=== PATIENT | male | born 1985 | race Caucasian/White ===

== ENCOUNTER 2022-01-06 14:46 | Inpatient (IN) ==
[2022-01-06 16:10] LABS: Amphetamine Screen,Urine Negative ng/mL (Cutoff=1000); Barbiturate Screen,Urine Negative ng/mL (Cutoff=200); Benzodiazepines Screen,Urine Negative ng/mL (Cutoff=200); Cannabinoid Screen,Urine Positive ng/mL (Cutoff = 50); Cocaine Screen,Urine Negative ng/mL (Cutoff= 300); Opiate Screen,Urine Negative ng/mL (Cutoff=300); Phencyclidine Screen,Urine Negative ng/mL (Cutoff=25)
[2022-01-06 16:18] LABS: Basophils % 0.2 %; Hematocrit 45.4 % (37.5-50.1); Hemoglobin 15.5 g/dL (12.9-16.9); Immature Granulocytes % 0.3 % (0-4); Lymphocytes # 0.8 K/mcL (0.6-4.6); Lymphocytes % 12.7 %; Mean Corpuscular HGB Conc 34.1 g/dL (31.6-35.5); Mean Corpuscular Hemoglobin 30.1 pg (28.0-33.3); Mean Corpuscular Volume 88.2 fL (83.0-100.0); Mean Platelet Volume 9.1 fL (9.4-12.4); Monocytes # 0.9 K/mcL (0.0-1.3); Monocytes % 14.8 %; Neutrophils # 4.5 K/mcL (1.6-8.9); Platelet Count 152 K/mcL (140-400); Red Blood Count 5.15 M/mcL (4.19-5.50); Red Cell Distribution Width 12.1 % (11.5-14.5); White Blood Count 6.2 K/mcL (4.3-11.1)
[2022-01-06] MEDS ORDERED: Isovue-370 500 ML BOTTLE IVP ONE (17:00)
[2022-01-06 17:59] LABS: Influenza A PCR Negative (Negative); Influenza B PCR Negative (Negative); Resp. Syncytial Virus PCR Negative (Negative)
[2022-01-06 18:02] LABS: SARS-CoV-2 by PCR (In House) Positive (Negative)
[2022-01-06 18:05] LABS: BUN/Creatinine Ratio 25 (6-26); Blood Urea Nitrogen 23 mg/dL (6-20); Calcium 9.1 mg/dL (8.6-10.3); Carbon Dioxide 26 mEq/L (23-29); Chloride 100 mEq/L (98-107); Ethanol < 10 mg/dL (Less than 10); Glucose 109 mg/dL (70-105); Osmolality,Calculated 288 (280-300); Potassium 3.1 mEq/L (3.5-5.1); Sodium 137 mEq/L (136-145); eGFR For African Americans > 60 (> 60); eGFR For Non-African Americans > 60 (> 60)
[2022-01-06] MEDS ORDERED: Ibuprofen 600 MG TABLET PO ONE (19:28)
[2022-01-06 19:49] LABS: Thyroid Stimulating Hormone 0.278 mcIU/mL (0.340-5.600)
[2022-01-06] MEDS ORDERED: Potassium Effervescent 25 MEQ TABLET.EFF PO ONE (20:06)
[2022-01-06] MEDS ORDERED: Ondansetron 4 MG/2 ML VIAL IVP PRN (20:59)
[2022-01-06] MEDS ORDERED: Naloxone 0.4 MG/ML INJ IVP PRN (20:59)
[2022-01-06] MEDS: *HR* Heparin 5,000 UNIT/ML VIAL SQ SCH (21:38)
[2022-01-06] MEDS: Nicotine 21 MG PATCH.TD24 TD SCH (21:57)
[2022-01-06] MEDS: *HR* Buprenorphine HCl 8 MG TAB.SUBL SL SCH (21:57)
[2022-01-06 22:17] LABS: Magnesium 2.2 mg/dL (1.6-2.6)
[2022-01-06] MEDS: lamoTRIgine 100 MG TABLET PO SCH (22:58)
[2022-01-07] MEDS: *HR* Heparin 5,000 UNIT/ML VIAL SQ SCH ×3 (05:07→21:40)
[2022-01-07 05:58] LABS: Basophils % 0.4 %; Hematocrit 44.1 % (37.5-50.1); Hemoglobin 15.3 g/dL (12.9-16.9); Immature Granulocytes % 0.4 % (0-4); Lymphocytes # 1.1 K/mcL (0.6-4.6); Mean Corpuscular HGB Conc 34.7 g/dL (31.6-35.5); Mean Corpuscular Hemoglobin 30.4 pg (28.0-33.3); Mean Corpuscular Volume 87.5 fL (83.0-100.0); Mean Platelet Volume 8.8 fL (9.4-12.4); Monocytes # 0.8 K/mcL (0.0-1.3); Monocytes % 17.1 %; Neutrophils # 2.9 K/mcL (1.6-8.9); Platelet Count 128 K/mcL (140-400); Red Blood Count 5.04 M/mcL (4.19-5.50); Red Cell Distribution Width 12.1 % (11.5-14.5); Segmented Neutrophils % 59.1 %; White Blood Count 4.9 K/mcL (4.3-11.1)
[2022-01-07 06:04] LABS: INR 1.1; Prothrombin Time 12.4 Seconds (9.4-12.1)
[2022-01-07 06:47] LABS: Alanine Aminotransferase 30 Units/L (7-52); Albumin 4.6 g/dL (3.5-5.7); Albumin/Globulin Ratio 1.9 (1.1-2.2); Alkaline Phosphatase 68 Units/L (34-104); Aspartate Amino Transferase 56 Units/L (13-39); BUN/Creatinine Ratio 22 (6-26); Bilirubin,Total 0.7 mg/dL (0.3-1.0); Blood Urea Nitrogen 18 mg/dL (6-20); Calcium 8.8 mg/dL (8.6-10.3); Carbon Dioxide 26 mEq/L (23-29); Chloride 102 mEq/L (98-107); Globulin 2.4 g/dL (2.4-3.5); Glucose 106 mg/dL (70-105); Magnesium 2.2 mg/dL (1.6-2.6); Osmolality,Calculated 288 (280-300); Phosphorous 3.5 mg/dL (2.7-4.5); Potassium 3.1 mEq/L (3.5-5.1); Sodium 138 mEq/L (136-145); Troponin I < 0.03 ng/mL (< 0.04); eGFR For African Americans > 60 (> 60); eGFR For Non-African Americans > 60 (> 60)
[2022-01-07] MEDS ORDERED: Potassium Chloride Elixir 20 MEQ/15 ML UDC PO ONE (07:27)
[2022-01-07] MEDS: Nicotine 21 MG PATCH.TD24 TD SCH (09:28)
[2022-01-07] MEDS: *HR* Buprenorphine HCl 8 MG TAB.SUBL SL SCH (09:28)
[2022-01-07] MEDS ORDERED: cloNIDine HCL 0.1 MG TABLET PO PRN (12:36)
[2022-01-07 14:58] LABS: Amorphous Sediment,Urine Moderate per hpf (None-Few); Bilirubin,Urine Negative (Negative); Blood,Urine Negative (Negative); Clarity,Urine Ex.Turbid (Clear); Color,Urine Dark-Orange (Yellow); Glucose,Urine (UA) Normal (Normal); Ketones,Urine Trace mg/dL (Negative); Leukocyte Esterase,Urine Negative (Negative); Nitrite,Urine Negative (Negative); Protein,Urine 50 mg/dL (Neg-Trace); Specific Gravity,Urine > 1.030 (1.010-1.025)
[2022-01-07] MEDS: Melatonin 3 MG TABLET PO PRN (21:33)
[2022-01-07] MEDS: lamoTRIgine 100 MG TABLET PO SCH (21:33)
[2022-01-08] MEDS: *HR* Heparin 5,000 UNIT/ML VIAL SQ SCH ×3 (05:29→23:25)
[2022-01-08] MEDS: *HR* Buprenorphine HCl 8 MG TAB.SUBL SL SCH (08:56)
[2022-01-08] MEDS: Nicotine 21 MG PATCH.TD24 TD SCH (08:56)
[2022-01-08 11:58] LABS: Basophils % 0.4 %; Immature Granulocytes % 0.4 % (0-4); Mean Platelet Volume 9.3 fL (9.4-12.4); Red Cell Distribution Width 11.9 % (11.5-14.5)
[2022-01-08 12:00] LABS: Hematocrit 44.3 % (37.5-50.1); Hemoglobin 15.5 g/dL (12.9-16.9); Lymphocytes # 1.4 K/mcL (0.6-4.6); Lymphocytes % 29.9 %; Mean Corpuscular Hemoglobin 30.8 pg (28.0-33.3); Mean Corpuscular Volume 87.9 fL (83.0-100.0); Monocytes # 0.9 K/mcL (0.0-1.3); Monocytes % 18.8 %; Neutrophils # 2.4 K/mcL (1.6-8.9); Platelet Count 130 K/mcL (140-400); Red Blood Count 5.04 M/mcL (4.19-5.50); Segmented Neutrophils % 50.5 %; White Blood Count 4.8 K/mcL (4.3-11.1)
[2022-01-08 12:17] LABS: BUN/Creatinine Ratio 17 (6-26); Blood Urea Nitrogen 15 mg/dL (6-20); Calcium 8.8 mg/dL (8.6-10.3); Carbon Dioxide 30 mEq/L (23-29); Chloride 96 mEq/L (98-107); Glucose 101 mg/dL (70-105); Osmolality,Calculated 279 (280-300); Potassium 3.3 mEq/L (3.5-5.1); Sodium 134 mEq/L (136-145); eGFR For African Americans > 60 (> 60); eGFR For Non-African Americans > 60 (> 60)
[2022-01-08 12:31] LABS: Platelet Estimate Normal (Normal)
[2022-01-08] MEDS: OLANZapine 10 MG TAB.RAPDIS PO SCH (16:21)
[2022-01-08] MEDS: lamoTRIgine 100 MG TABLET PO SCH (20:06)
[2022-01-08] MEDS ORDERED: *HR* LORazepam 2 MG/ML VIAL IM ONE (20:15)
[2022-01-08] MEDS ORDERED: *HR* LORazepam 2 MG/ML VIAL IVP ONE ×2 (22:19→22:31)
[2022-01-08] MEDS ORDERED: Haloperidol Lactate 5 MG/ML VIAL IVP PRN (22:50)
[2022-01-08] MEDS ORDERED: Ziprasidone 10 MG, Closed System Device IM Kit 1 EACH in Water for inj. (sterile) 0.5 ML IM ONE (22:52)
[2022-01-08] MEDS ORDERED: Water for inj. (sterile) 10 ML ONE (23:02)
[2022-01-09] MEDS: Dexmedetomidine HCl 400 MCG/100 ML MLS IVC SCH ×3 (00:15→06:01)
[2022-01-09 02:48] LABS: Basophils % 0.1 %; Eosinophils % 0.1 %; Hemoglobin 14.8 g/dL (12.9-16.9); Immature Granulocytes % 0.4 % (0-4); Immature Platelets 2.5 % (1.1-6.1); Lymphocytes # 0.6 K/mcL (0.6-4.6); Lymphocytes % 7.6 %; Mean Corpuscular HGB Conc 35.2 g/dL (31.6-35.5); Mean Corpuscular Hemoglobin 30.6 pg (28.0-33.3); Monocytes # 0.7 K/mcL (0.0-1.3); Monocytes % 8.1 %; Platelet Count 108 K/mcL (140-400); Red Blood Count 4.83 M/mcL (4.19-5.50); Red Cell Distribution Width 11.8 % (11.5-14.5); Segmented Neutrophils % 83.7 %; White Blood Count 8.4 K/mcL (4.3-11.1)
[2022-01-09 03:08] LABS: Alanine Aminotransferase 57 Units/L (7-52); Albumin 4.3 g/dL (3.5-5.7); Albumin/Globulin Ratio 1.7 (1.1-2.2); Alkaline Phosphatase 60 Units/L (34-104); Aspartate Amino Transferase 146 Units/L (13-39); BUN/Creatinine Ratio 17 (6-26); Bilirubin,Direct 0.3 mg/dL (0.0-0.2); Bilirubin,Indirect 0.7 mg/dL (0.0-1.0); Blood Urea Nitrogen 14 mg/dL (6-20); Calcium 8.8 mg/dL (8.6-10.3); Carbon Dioxide 24 mEq/L (23-29); Chloride 94 mEq/L (98-107); Globulin 2.6 g/dL (2.4-3.5); Glucose 95 mg/dL (70-105); Lactate Dehydrogenase 582 Units/L (140-271); Magnesium 2.7 mg/dL (1.6-2.6); Osmolality,Calculated 280 (280-300); Potassium 3.3 mEq/L (3.5-5.1); Sodium 135 mEq/L (136-145); Total Protein 6.9 g/dL (6.4-8.9); eGFR For African Americans > 60 (> 60); eGFR For Non-African Americans > 60 (> 60)
[2022-01-09 03:53] LABS: Ferritin 261 ng/mL (20-250)
[2022-01-09 04:04] LABS: ABG Base Excess 0 mEq/L (-2 to 3); ABG HCO3 25 mEq/L (21-27); ABG Oxygen Saturation 96 % (95-98); ABG PCO2 40 mmHg (35-45); ABG PO2 82 mmHg (85-104); ABG TCO2 26 mEq/L (20-26)
[2022-01-09] MEDS: *HR* Heparin 5,000 UNIT/ML VIAL SQ SCH ×4 (05:22→22:29)
[2022-01-09] MEDS: Nicotine 21 MG PATCH.TD24 TD SCH (08:26)
[2022-01-09] MEDS: *HR* Buprenorphine HCl 8 MG TAB.SUBL SL SCH ×2 (08:27→09:06)
[2022-01-09] MEDS: OLANZapine 10 MG TAB.RAPDIS PO SCH ×3 (08:27→21:06)
[2022-01-09] MEDS ORDERED: Gabapentin 300 MG CAPSULE PO ONE (17:15)
[2022-01-09] MEDS: lamoTRIgine 100 MG TABLET PO SCH (21:06)
[2022-01-09] MEDS: Melatonin 3 MG TABLET PO PRN (21:20)
[2022-01-10] MEDS: *HR* Heparin 5,000 UNIT/ML VIAL SQ SCH ×3 (06:08→22:01)
[2022-01-10] MEDS ORDERED: hydrOXYzine pamoate 25 MG CAPSULE PO ONE (08:21)
[2022-01-10] MEDS: Nicotine 21 MG PATCH.TD24 TD SCH (08:37)
[2022-01-10] MEDS: OLANZapine 10 MG TAB.RAPDIS PO SCH ×2 (08:37→22:01)
[2022-01-10] MEDS: *HR* Buprenorphine HCl 8 MG TAB.SUBL SL SCH (08:38)
[2022-01-10 10:15] LABS: BUN/Creatinine Ratio 11 (6-26); Blood Urea Nitrogen 9 mg/dL (6-20); Calcium 8.3 mg/dL (8.6-10.3); Carbon Dioxide 31 mEq/L (23-29); Chloride 98 mEq/L (98-107); Glucose 100 mg/dL (70-105); Osmolality,Calculated 279 (280-300); Potassium 3.2 mEq/L (3.5-5.1); Sodium 135 mEq/L (136-145); eGFR For African Americans > 60 (> 60); eGFR For Non-African Americans > 60 (> 60)
[2022-01-10 10:41] LABS: Red Blood Count 5.03 M/mcL (4.19-5.50); Red Cell Distribution Width 11.9 % (11.5-14.5)
[2022-01-10 10:43] LABS: Hematocrit 44.1 % (37.5-50.1); Hemoglobin 15.2 g/dL (12.9-16.9); Immature Platelets 3.3 % (1.1-6.1); Mean Corpuscular HGB Conc 34.5 g/dL (31.6-35.5); Mean Corpuscular Hemoglobin 30.2 pg (28.0-33.3); Mean Corpuscular Volume 87.7 fL (83.0-100.0); Mean Platelet Volume 9.4 fL (9.4-12.4)
[2022-01-10] MEDS: hydrOXYzine pamoate 25 MG CAPSULE PO PRN ×2 (13:20→19:04)
[2022-01-10] MEDS: lamoTRIgine 100 MG TABLET PO SCH (22:01)
[2022-01-10] MEDS: Melatonin 3 MG TABLET PO PRN (22:03)
[2022-01-11] MEDS: Acetaminophen 325 MG TABLET PO PRN (01:11)
[2022-01-11] MEDS: hydrOXYzine pamoate 25 MG CAPSULE PO PRN ×2 (01:11→12:49)
[2022-01-11 03:25] LABS: Red Cell Distribution Width 11.9 % (11.5-14.5)
[2022-01-11 03:27] LABS: Hematocrit 42.8 % (37.5-50.1); Hemoglobin 14.6 g/dL (12.9-16.9); Immature Platelets 2.8 % (1.1-6.1); Mean Corpuscular HGB Conc 34.1 g/dL (31.6-35.5); Mean Corpuscular Hemoglobin 30.5 pg (28.0-33.3); Mean Corpuscular Volume 89.4 fL (83.0-100.0); Mean Platelet Volume 9.2 fL (9.4-12.4); Red Blood Count 4.79 M/mcL (4.19-5.50); White Blood Count 3.7 K/mcL (4.3-11.1)
[2022-01-11 03:45] LABS: Alanine Aminotransferase 80 Units/L (7-52); Albumin 3.8 g/dL (3.5-5.7); Albumin/Globulin Ratio 1.5 (1.1-2.2); Alkaline Phosphatase 50 Units/L (34-104); Aspartate Amino Transferase 181 Units/L (13-39); BUN/Creatinine Ratio 14 (6-26); Bilirubin,Total 0.7 mg/dL (0.3-1.0); Blood Urea Nitrogen 10 mg/dL (6-20); Calcium 8.5 mg/dL (8.6-10.3); Carbon Dioxide 30 mEq/L (23-29); Chloride 101 mEq/L (98-107); Globulin 2.6 g/dL (2.4-3.5); Glucose 104 mg/dL (70-105); Osmolality,Calculated 283 (280-300); Potassium 3.5 mEq/L (3.5-5.1); Sodium 137 mEq/L (136-145); Total Protein 6.4 g/dL (6.4-8.9); eGFR For African Americans > 60 (> 60); eGFR For Non-African Americans > 60 (> 60)
[2022-01-11] MEDS: *HR* Heparin 5,000 UNIT/ML VIAL SQ SCH ×2 (07:30→12:00)
[2022-01-11] MEDS: Nicotine 21 MG PATCH.TD24 TD SCH (08:22)
[2022-01-11] MEDS: dexAMETHasone 4 MG TABLET PO SCH (08:22)
[2022-01-11] MEDS: OLANZapine 10 MG TAB.RAPDIS PO SCH (08:22)
[2022-01-11] MEDS: *HR* Buprenorphine HCl 8 MG TAB.SUBL SL SCH (08:22)
[2022-01-11] MEDS: Ipratropium 1 PUFF INHALER IH SCH ×5 (08:31→23:00)
[2022-01-12] MEDS: OLANZapine 10 MG TAB.RAPDIS PO SCH ×2 (00:57→07:14)
[2022-01-12] MEDS: Melatonin 3 MG TABLET PO PRN ×2 (00:57→20:58)
[2022-01-12] MEDS: hydrOXYzine pamoate 25 MG CAPSULE PO PRN ×3 (00:57→21:01)
[2022-01-12] MEDS: lamoTRIgine 100 MG TABLET PO SCH ×2 (00:57→20:58)
[2022-01-12] MEDS: *HR* Heparin 5,000 UNIT/ML VIAL SQ SCH ×4 (01:00→21:01)
[2022-01-12] MEDS: Ipratropium 1 PUFF INHALER IH SCH ×5 (04:44→20:15)
[2022-01-12] MEDS ORDERED: *HR* LORazepam 2 MG/ML VIAL IVP ONE (07:01)
[2022-01-12] MEDS: *HR* Buprenorphine HCl 8 MG TAB.SUBL SL SCH (07:14)
[2022-01-12] MEDS: dexAMETHasone 4 MG TABLET PO SCH (07:14)
[2022-01-12] MEDS: Nicotine 21 MG PATCH.TD24 TD SCH ×2 (07:15→15:27)
[2022-01-12 08:40] LABS: Red Cell Distribution Width 11.8 % (11.5-14.5)
[2022-01-12 08:42] LABS: Hematocrit 42.6 % (37.5-50.1); Hemoglobin 14.5 g/dL (12.9-16.9); Immature Platelets 3.1 % (1.1-6.1); Mean Corpuscular Hemoglobin 30.3 pg (28.0-33.3); Mean Corpuscular Volume 88.9 fL (83.0-100.0); Mean Platelet Volume 9.3 fL (9.4-12.4); Red Blood Count 4.79 M/mcL (4.19-5.50); White Blood Count 5.8 K/mcL (4.3-11.1)
[2022-01-12 08:48] LABS: Alanine Aminotransferase 93 Units/L (7-52); Albumin 4.1 g/dL (3.5-5.7); Albumin/Globulin Ratio 1.5 (1.1-2.2); Alkaline Phosphatase 52 Units/L (34-104); Aspartate Amino Transferase 128 Units/L (13-39); BUN/Creatinine Ratio 13 (6-26); Bilirubin,Total 0.8 mg/dL (0.3-1.0); Blood Urea Nitrogen 10 mg/dL (6-20); Calcium 8.9 mg/dL (8.6-10.3); Carbon Dioxide 29 mEq/L (23-29); Chloride 101 mEq/L (98-107); Globulin 2.7 g/dL (2.4-3.5); Glucose 100 mg/dL (70-105); Osmolality,Calculated 283 (280-300); Potassium 3.6 mEq/L (3.5-5.1); Sodium 137 mEq/L (136-145); Total Protein 6.8 g/dL (6.4-8.9); eGFR For African Americans > 60 (> 60); eGFR For Non-African Americans > 60 (> 60)
[2022-01-12] MEDS: OLANZapine 5 MG TAB.RAPDIS PO SCH ×2 (14:09→20:56)
[2022-01-12] MEDS: Gabapentin 100 MG CAPSULE PO SCH ×2 (16:11→20:59)
[2022-01-12] MEDS: Acetaminophen 325 MG TABLET PO PRN (20:59)
[2022-01-12] MEDS: Lithium Carbonate ER 450 MG TABLET.ER PO SCH (21:11)
[2022-01-13] MEDS ORDERED: OLANZapine 10 MG VIAL IM ONE (01:05)
[2022-01-13 01:14] LABS: Hematocrit 41.2 % (37.5-50.1); Hemoglobin 13.9 g/dL (12.9-16.9); Immature Platelets 3.3 % (1.1-6.1); Mean Corpuscular HGB Conc 33.7 g/dL (31.6-35.5); Mean Corpuscular Hemoglobin 30.3 pg (28.0-33.3); Mean Corpuscular Volume 89.8 fL (83.0-100.0); Mean Platelet Volume 9.3 fL (9.4-12.4); Red Blood Count 4.59 M/mcL (4.19-5.50); Red Cell Distribution Width 11.9 % (11.5-14.5); White Blood Count 7.5 K/mcL (4.3-11.1)
[2022-01-13 01:36] LABS: Alanine Aminotransferase 100 Units/L (7-52); Albumin 4.1 g/dL (3.5-5.7); Albumin/Globulin Ratio 1.6 (1.1-2.2); Alkaline Phosphatase 55 Units/L (34-104); Aspartate Amino Transferase 103 Units/L (13-39); BUN/Creatinine Ratio 17 (6-26); Bilirubin,Total 0.7 mg/dL (0.3-1.0); Blood Urea Nitrogen 16 mg/dL (6-20); Carbon Dioxide 28 mEq/L (23-29); Chloride 101 mEq/L (98-107); Globulin 2.6 g/dL (2.4-3.5); Glucose 79 mg/dL (70-105); Osmolality,Calculated 284 (280-300); Potassium 3.7 mEq/L (3.5-5.1); Sodium 137 mEq/L (136-145); Total Protein 6.7 g/dL (6.4-8.9); eGFR For African Americans > 60 (> 60); eGFR For Non-African Americans > 60 (> 60)
[2022-01-13] MEDS: *HR* Heparin 5,000 UNIT/ML VIAL SQ SCH ×3 (06:54→22:02)
[2022-01-13] MEDS: *HR* Buprenorphine HCl 2 MG SUBLINGUAL TABLET SL SCH (07:45)
[2022-01-13] MEDS: Gabapentin 100 MG CAPSULE PO SCH ×3 (07:45→22:08)
[2022-01-13] MEDS: OLANZapine 5 MG TAB.RAPDIS PO SCH ×3 (07:45→22:09)
[2022-01-13] MEDS: Nicotine 21 MG PATCH.TD24 TD SCH (07:55)
[2022-01-13] MEDS: hydrOXYzine pamoate 25 MG CAPSULE PO PRN (11:15)
[2022-01-13] MEDS ORDERED: Haloperidol Lactate 5 MG/ML VIAL IVP PRN (12:58)
[2022-01-13] MEDS ORDERED: *HR* LORazepam 2 MG/ML VIAL IVP PRN (12:59)
[2022-01-13] MEDS ORDERED: ChlorproMAZINE 25 MG/ML AMPUL IM ONE (15:07)
[2022-01-13] MEDS: Dexmedetomidine HCl 400 MCG/100 ML MLS IVC SCH (16:58)
[2022-01-13] MEDS: lamoTRIgine 100 MG TABLET PO SCH (22:08)
[2022-01-13] MEDS: Lithium Carbonate ER 450 MG TABLET.ER PO SCH (22:08)
[2022-01-14] MEDS: Dexmedetomidine HCl 400 MCG/100 ML MLS IVC SCH (00:12)
[2022-01-14] MEDS: *HR* Heparin 5,000 UNIT/ML VIAL SQ SCH ×3 (06:14→21:53)
[2022-01-14] MEDS: Nicotine 21 MG PATCH.TD24 TD SCH (07:32)
[2022-01-14] MEDS: OLANZapine 5 MG TAB.RAPDIS PO SCH ×3 (07:32→21:52)
[2022-01-14] MEDS: Gabapentin 100 MG CAPSULE PO SCH ×3 (07:32→21:52)
[2022-01-14] MEDS: *HR* Buprenorphine HCl 2 MG SUBLINGUAL TABLET SL SCH (07:32)
[2022-01-14] MEDS ORDERED: ChlorproMAZINE 25 MG/ML AMPUL IM PRN (14:41)
[2022-01-14] MEDS ORDERED: QUEtiapine Fumarate 100 MG TABLET PO ONE (21:00)
[2022-01-14] MEDS ORDERED: Dexmedetomidine HCl 400 MCG/100 ML MLS IVC ONE (21:31)
[2022-01-14] MEDS: Lithium Carbonate ER 450 MG TABLET.ER PO SCH (21:52)
[2022-01-14] MEDS: lamoTRIgine 100 MG TABLET PO SCH (21:52)
[2022-01-15] MEDS: Dexmedetomidine HCl 400 MCG/100 ML MLS IVC SCH (03:01)
[2022-01-15] MEDS: *HR* Heparin 5,000 UNIT/ML VIAL SQ SCH (05:29)
[2022-01-15] MEDS: OLANZapine 5 MG TAB.RAPDIS PO SCH ×3 (07:18→20:41)
[2022-01-15] MEDS: *HR* Buprenorphine HCl 2 MG SUBLINGUAL TABLET SL SCH (07:18)
[2022-01-15] MEDS: Gabapentin 100 MG CAPSULE PO SCH ×3 (07:18→20:41)
[2022-01-15] MEDS: Nicotine 21 MG PATCH.TD24 TD SCH (07:19)
[2022-01-15] MEDS: lamoTRIgine 100 MG TABLET PO SCH (20:41)
[2022-01-15] MEDS: Lithium Carbonate ER 450 MG TABLET.ER PO SCH (20:41)
[2022-01-16] MEDS ORDERED: *HR* Enoxaparin 40 MG/0.4 ML SYRINGE SQ SCH (06:00)
[2022-01-16 12:05] VITALS: BP 136/81; PULSE 111; TEMP 98; O2SAT 95
[2022-01-16] MEDS: *HR* Buprenorphine HCl 2 MG SUBLINGUAL TABLET SL SCH (12:34)
[2022-01-16] MEDS: Nicotine 21 MG PATCH.TD24 TD SCH (12:34)
[2022-01-16] MEDS: OLANZapine 5 MG TAB.RAPDIS PO SCH ×2 (12:36→17:41)
[2022-01-16] MEDS: Gabapentin 100 MG CAPSULE PO SCH ×2 (12:36→17:41)
[2022-01-16] MEDS: hydrOXYzine pamoate 25 MG CAPSULE PO PRN (13:24)
== END 2022-01-16 19:31 | disposition home or self-care (01) | DRG 137 ==
LOC: EMEROOARM 14:46 → 3BNU 14:46 → SUATTDRO 20:07 → 3BNU 20:32 → 2NENU 01-09 00:09 → SUATTDRO 01-09 14:58 → 2NNU 01-10 08:20 → 2NENU 01-10 16:03
PROVIDERS: ADMIT Internal Medicine; ATTEND Internal Medicine